=== PATIENT | female | born 1990 | race African-American/Black ===

== ENCOUNTER 2016-04-30 15:08 | Emergency (ER) ==
--- NOTE | 2016-04-30 16:20 | PROVIDER DOCUMENTATION ---
HPI-Abdominal Pain/GI Problem - General Source: patient - History of Present Illness-ABD Nature of Presenting Problems: patient is a 26 y/o F that presents with n/v. patient is about 6 weeks , denies fever/chills, abdominal pain, or vaginal bleeding/discharge Pain Radiation: reports: no radiation Quality of Pain: reports: none Severity in ED: reports: mild Onset/Duration: reports: gradual, 1 week ago Timing: reports: still present, intermittent Activities at Onset: reports: none Modifying Factors: improves with: nothing Associated Symptoms: reports: nausea, vomiting. denies: cough, diarrhea, dizziness, fatigue, fever/chills, genitourinary problems, rash Similar Symptoms Previously?: Yes Recently seen or treated by another doctor?: Yes <Veto Shirley - Last Filed: 04/30/16 16:59> <Rowan Hodges - Last Filed: 04/30/16 19:05> - General Chief Complaint: Nausea/Vomiting Stated Complaint: 6 WKS PREG/N/V FOR WKS Time Seen by Provider: 04/30/16 16:20 Allergies/Adverse Reactions: Patient Allergies Allergy/AdvReac Type Severity Reaction Status Date / Time iodine Allergy Severe ANAPHYLAXIS Verified 07/12/15 13:11 shellfish derived Allergy Severe ANAPHYLAXIS Verified 07/12/15 13:11 Home Medications: Home Medication List Medication Instructions Recorded Confirmed Last Taken Type Amoxicillin 500 mg PO BID #14 tablet 07/12/15 Unknown Rx Cetirizine [Zyrtec] 10 mg PO DAILY #20 tablet 07/12/15 Unknown Rx Prednisone 10 mg PO DIRECTED #9 tablet 07/12/15 Unknown Rx Ondansetron Odt [Zofran 4 mg Odt] 4 mg PO Q6H PRN PRN #15 tablet 04/30/16 Unknown Rx Promethazine [Phenergan] 25 mg PO Q6H PRN PRN #20 tablet 04/30/16 Unknown Rx Review of Systems - Adult - REVIEW OF SYSTEMS - ADULT Constitutional: denies: chills, fever Eyes: reports: no symptoms reported Ears, Nose, Mouth & Throat: denies: ear pain, sinus problem, throat pain, throat swelling Cardiovascular: denies: chest pain, palpitations, syncope Respiratory: denies: cough, shortness of breath, wheezing Gastrointestinal: reports: nausea, vomiting. denies: abdominal pain, diarrhea Genitourinary: denies: dysuria, frequency, hematuria, urgency Musculoskeletal: reports: no symptoms reported Integumentary: reports: no symptoms reported Neurological: reports: no symptoms reported Psychiatric: reports: no symptoms reported Endocrine: reports: no symptoms reported Hematologic/Lymphatic: reports: no symptoms reported Allergic/Immunologic: reports: no symptoms reported All Other Systems: Reviewed and Negative <Veto Shirley - Last Filed: 04/30/16 16:59> Past History - Adult - PAST MEDICAL HISTORY-ADULT Review of Records: reports: Old Records Reviewed, Nursing Assessment Review, Medications Reviewed, Social history reviewed & non-contributory. Major Childhood Illnesses: reports: denies history Cardiovascular: reports: HTN Neurological: reports: headaches/migraines, Seizures/Epilepsy - PRIOR SURGERIES/PROCEDURES Surgical/Procedure History: reports: - IMMUNIZATION STATUS Childhood Immunizations: See Nurse Assessment Flu Vaccine: See Nurse Assessment <Rowan Hodges - Last Filed: 04/30/16 19:05> Physical Exam-General - PHYSICAL EXAM-ADULT Initial Vital Signs Reviewed: Yes - CONSTITUTIONAL General Appearance: appears well, alert, no apparent distress - EYES Eyes: PERRL/EOMI, pink conjunctivae - HEAD, EARS, NOSE, MOUTH & THROAT HENMT: normocephalic/atraumatic, moist mucous membranes - NECK Neck: non-tender, full range of motion, supple. negative: lymphadenopathy - RESPIRATORY Respiratory: chest non-tender, lungs clear, normal breath sounds - CARDIOVASCULAR Cardiovascular: regular rate, rhythm - GASTROINTESTINAL (ABDOMEN) Abdominal Exam: normal bowel sounds, soft, tenderness (suprapubic and LLQ) - MUSCULOSKELETAL Back Exam: normal inspection, no CVA tenderness, no vertebral tenderness Extremity: normal gait, normal inspection - SKIN Integumentary: normal color, normal turgor, warm/dry. negative: rash - NEUROLOGIC Neurologic: grossly normal, no motor/sensory deficits - PSYCHIATRIC Psych/Mental Status: normal thought content, normal thought process <Rowan Hodges - Last Filed: 04/30/16 19:05> Progress - PLAN OF CARE/RESULTS Progress/Plan/Lab Results: Vital Signs Temp Pulse Pulse Pulse Pulse Resp BP 04/30/16 16:29 67 73 61 04/30/16 15:14 98.7 F 85 18 105/79 BP BP BP Pulse Ox 04/30/16 16:29 119/66 111/72 110/67 04/30/16 15:14 100 iodine Allergy (Severe, Verified 07/12/15 13:11) ANAPHYLAXIS shellfish derived Allergy (Severe, Verified 07/12/15 13:11) ANAPHYLAXIS Amoxicillin 500 mg PO BID #14 tablet 07/12/15 Cetirizine [Zyrtec] 10 mg PO DAILY #20 tablet 07/12/15 Prednisone 10 mg PO DIRECTED #9 tablet 07/12/15 Dietary Diet NPO Start WedApr 30 151 Laboratory 04/30/16 04/30/16 04/30/16 17:20 17:20 17:20 WBC 8.41 RBC 4.83 Hgb 13.3 Hct 38.9 MCV 80.5 L MCH 27.5 MCHC 34.2 RDW Std Deviation 13.3 Plt Count 245 MPV 12.1 H Immature Gran % (Auto) 0.1 Neut % (Auto) 72.4 Lymph % (Auto) 19.5 L [place] % (Auto) 7.4 Eos % (Auto) 0.4 Baso % (Auto) 0.2 Immature Gran # (Auto) 0.01 Neut # (Auto) 6.09 Lymph # (Auto) 1.64 [place] # (Auto) 0.62 H Eos # (Auto) 0.03 Baso # (Auto) 0.02 Sodium 132 L Potassium 3.8 Chloride 97 L Carbon Dioxide 23 L Anion Gap 12 BUN 10 Creatinine 0.5 Estimated GFR/1.73 m2 > 60 BUN/Creatinine Ratio 20 Glucose 80 Calculated Osmolality 263 Calcium 9.0 Total Bilirubin 1.00 AST 13 ALT 12 Alkaline Phosphatase 75 Total Protein 7.6 Albumin 4.3 Globulin 3.0 Albumin/Globulin Ratio 1.0 Amylase 128 Lipase 62 H Ser , Semi-Qnt 86663.0 Urine Source Urine Color Urine Clarity Urine pH Ur Specific [place] Urine Protein Urine Ketones Urine Blood Urine Nitrite Urine Bilirubin Urine Urobilinogen Urine Microscopic RBC Urine WBC Urine Microscopic WBC Ur Epithelial Cells Urine Crystals Urine Bacteria Urine Casts Urine Yeast Urine Glucose 04/30/16 17:07 WBC RBC Hgb Hct MCV MCH MCHC RDW Std Deviation Plt Count MPV Immature Gran % (Auto) Neut % (Auto) Lymph % (Auto) [place] % (Auto) Eos % (Auto) Baso % (Auto) Immature Gran # (Auto) Neut # (Auto) Lymph # (Auto) [place] # (Auto) Eos # (Auto) Baso # (Auto) Sodium Potassium Chloride Carbon Dioxide Anion Gap BUN Creatinine Estimated GFR/1.73 m2 BUN/Creatinine Ratio Glucose Calculated Osmolality Calcium Total Bilirubin AST ALT Alkaline Phosphatase Total Protein Albumin Globulin Albumin/Globulin Ratio Amylase Lipase Ser , Semi-Qnt Urine Source CLEAN CATCH Urine Color AVERY Urine Clarity SLIGHTLY CLOUDY A Urine pH 6.5 Ur Specific [place] 1.020 Urine Protein 1+(30 mg/dL) A Urine Ketones 2+(Moderate) A Urine Blood NEGATIVE Urine Nitrite NEGATIVE Urine Bilirubin NEGATIVE Urine Urobilinogen 2+(4 mg/dL) Urine Microscopic RBC Not Reportable Urine WBC TRACE A Urine Microscopic WBC <10 Ur Epithelial Cells >10 A Urine Crystals NONE SEEN Urine Bacteria 2+ Urine Casts NONE SEEN Urine Yeast NONE SEEN Urine Glucose NEGATIVE Orders Category Date Time Status ED: Orthostatic Vital Signs (E as directed Care 04/30/16 16:29 Active NPO Diet 04/30/16 15:17 Active AMYLASE [CHEM] Stat Lab 04/30/16 17:20 Completed CBC WITH ELECTRONIC DIFF [HEME] Stat Lab 04/30/16 17:20 Completed COMPREHENSIVE METABOLIC PANEL [CHEM] Stat Lab 04/30/16 17:20 Completed LIPASE [CHEM] Stat Lab 04/30/16 17:20 Completed QUANT TEST Stat Lab 04/30/16 17:[address] W/POSS RFLX CULT [URINALYSIS] Stat Lab 04/30/16 17:07 Completed URINE CULTURE [RM] Routine Lab 04/30/16 18:15 Ordered Ondansetron Odt [Zofran Odt] Med 04/30/16 16:30 Discontinued 4 mg PO NOW ONE Laboratory Tests 04/30/16 04/30/16 04/30/16 17:07 17:20 17:20 WBC 8.41 RBC 4.83 Hgb 13.3 Hct 38.9 MCV 80.5 L MCH 27.5 MCHC 34.2 RDW Std Deviation 13.3 Plt Count 245 MPV 12.1 H Immature Gran % (Auto) 0.1 Neut % (Auto) 72.4 Lymph % (Auto) 19.5 L [place] % (Auto) 7.4 Eos % (Auto) 0.4 Baso % (Auto) 0.2 Immature Gran # (Auto) 0.01 Neut # (Auto) 6.09 Lymph # (Auto) 1.64 [place] # (Auto) 0.62 H Eos # (Auto) 0.03 Baso # (Auto) 0.02 Sodium 132 L Potassium 3.8 Chloride 97 L Carbon Dioxide 23 L Anion Gap 12 BUN 10 Creatinine 0.5 Estimated GFR/1.73 m2 > 60 BUN/Creatinine Ratio 20 Glucose 80 Calculated Osmolality 263 Calcium 9.0 Total Bilirubin 1.00 AST 13 ALT 12 Alkaline Phosphatase 75 Total Protein 7.6 Albumin 4.3 Globulin 3.0 Albumin/Globulin Ratio 1.0 Amylase 128 Lipase 62 H Ser , Semi-Qnt Urine Source CLEAN CATCH Urine Color AVERY Urine Clarity SLIGHTLY CLOUDY A Urine pH 6.5 Ur Specific [place] 1.020 Urine Protein 1+(30 mg/dL) A Urine Ketones 2+(Moderate) A Urine Blood NEGATIVE Urine Nitrite NEGATIVE Urine Bilirubin NEGATIVE Urine Urobilinogen 2+(4 mg/dL) Urine Microscopic RBC Not Reportable Urine WBC TRACE A Urine Microscopic WBC <10 Ur Epithelial Cells >10 A Urine Crystals NONE SEEN Urine Bacteria 2+ Urine Casts NONE SEEN Urine Yeast NONE SEEN Urine Glucose NEGATIVE 04/30/16 17:20 WBC RBC Hgb Hct MCV MCH MCHC RDW Std Deviation Plt Count MPV Immature Gran % (Auto) Neut % (Auto) Lymph % (Auto) [place] % (Auto) Eos % (Auto) Baso % (Auto) Immature Gran # (Auto) Neut # (Auto) Lymph # (Auto) [place] # (Auto) Eos # (Auto) Baso # (Auto) Sodium Potassium Chloride Carbon Dioxide Anion Gap BUN Creatinine Estimated GFR/1.73 m2 BUN/Creatinine Ratio Glucose Calculated Osmolality Calcium Total Bilirubin AST ALT Alkaline Phosphatase Total Protein Albumin Globulin Albumin/Globulin Ratio Amylase Lipase Ser , Semi-Qnt 00737.0 Urine Source Urine Color Urine Clarity Urine pH Ur Specific [place] Urine Protein Urine Ketones Urine Blood Urine Nitrite Urine Bilirubin Urine Urobilinogen Urine Microscopic RBC Urine WBC Urine Microscopic WBC Ur Epithelial Cells Urine Crystals Urine Bacteria Urine Casts Urine Yeast Urine Glucose <Rowan Hodges - Last Filed: 04/30/16 19:05> Departure <Veto Shirley - Last Filed: 04/30/16 16:59> - Departure Time of Disposition Order: 19:03 Certified Medical Emergency: Emergent <Rowan Hodges - Last Filed: 04/30/16 19:05> - Departure DIAGNOSIS: Hyperemesis gravidarum Disposition: HOME 01 Condition: Good Additional Instructions: ED Follow Up Instructions: You have been treated by a care provider in the Emergency Department. These instructions are being provided to you so you can have an understanding of how to care for yourself upon discharge. Upon discharge from the Emergency Department, you are responsible for making arrangements for follow-up care by a physician of your choice. Take all prescribed medications as directed. Return to the Emergency Department immediately for any new or worsening symptoms. You may call the Physician Referral phone number at [phone] to obtain a list of Physicians who are taking new patients. Prescriptions: Promethazine [Phenergan] 25 mg PO Q6H PRN PRN #20 tablet PRN Reason: Nausea Ondansetron Odt [Zofran 4 mg Odt] 4 mg PO Q6H PRN PRN #15 tablet PRN Reason: Nausea Referrals: None,PCP [Primary Care Provider] - Rylee Hernández MD [STAFF PHYSICIAN] - Attestation - Scribe Verification/Attestation Scribe:: Veto Shirley Acting as Scribe for:: Rowan Hodges Scribe documention review:: This chart was documented by a scribe and accurately reflects the service the provider performed and the decisions made by the provider. - Physician/ SUSHIL Attestation Patient care was provided by Advanced Practice Provider:: Yes Advanced Practice Provider:: Rowan Hodges Advanced Practice Provider documentation review:: The Mid-level provider documentation, treatment plan and medical decision making was reviewed by the physician who agrees with all treatment and medical decision making by the MLP. <Veto Shirley - Last Filed: 04/30/16 16:59> - Physician/ SUSHIL Attestation Patient care was provided by Advanced Practice Provider:: Yes Advanced Practice Provider:: Rowan Hodges Advanced Practice Provider documentation review:: The Mid-level provider documentation, treatment plan and medical decision making was reviewed by the physician who agrees with all treatment and medical decision making by the MLP. <Rowan Hodges - Last Filed: 04/30/16 19:05> Physician Attestation - Physician Attestation I, the provider, attest to the following statement:: Rowan Hodges Physician documentation Attestation:: This documentation recorded by the scribe accurately reflects the service I personally performed and the decisions made by me. <Veto Shirley - Last Filed: 04/30/16 16:59> - Physician Attestation I, the provider, attest to the following statement:: Rowan Hodges Physician documentation Attestation:: This documentation recorded by the scribe accurately reflects the service I personally performed and the decisions made by me. <Rowan Hodges - Last Filed: 04/30/16 19:05>
[2016-04-30] MEDS ORDERED: ZOFRAN ODT PO ONE (16:30)
[2016-04-30 17:14] LABS: URINE SOURCE CLEAN CATCH
[2016-04-30 17:24] LABS: CLARITY SLIGHTLY CLOUDY (CLEAR); COLOR AMBER
[2016-04-30 17:28] LABS: MANUAL DIFF NEEDED? NO
[2016-04-30 17:40] LABS: BASO% 0.2 % (0.0-0.8); EOS# 0.03 X1000 (0.0-0.7); EOS% 0.4 % (0.0-10.0); HEMATOCRIT 38.9 % (37.0-47.0); HEMOGLOBIN 13.3 g/dL (12.0-16.0); IMM GRAN# 0.01 X1000 (0.0-0.04); IMM GRAN% 0.1 % (0.0-0.5); LYMPH# 1.64 X1000 (1.2-3.4); LYMPH% 19.5 % (20.5-51.1); MCH 27.5 PG (27-31); MCHC 34.2 g/dL (33-37); MCV 80.5 FL (81-99); MONO# 0.62 X1000 (0.11-0.59); MONO% 7.4 % (1.7-9.3); MPV 12.1 FL (7.4-10.4); NEUT% 72.4 % (42.2-75.2); PLT 245 X1000 (130-400); RBC 4.83 XMIL (4.2-5.4)
[2016-04-30 18:00] LABS: AGAP 12; ALBUMIN 4.3 g/dL (3.5-5.0); ALKALINE PHOSPHATASE 75 U/L (32-104); AMYLASE 128 U/L (20-200); BUN 10 mg/dL (8-22); CHLORIDE 97 mmol/L (98-107); COSMO 263; GOT 13 U/L (10-30); GPT 12 U/L (10-36); LIPASE 62 U/L (13-60); POTASSIUM 3.8 mmol/L (3.5-5.1); SODIUM 132 mmol/L (136-145); TCO2 23 mmol/L (25-35); TOTAL PROTEIN 7.6 g/dL (6.3-8.3)
[2016-04-30 18:14] LABS: URINE CAST NONE SEEN /LPF; URINE CRYSTAL NONE SEEN /HPF; URINE EPITHELIAL CELLS >10 /HPF (<10); URINE WBC <10 /HPF (<10)
[2016-04-30 18:15] LABS: BILIRUBIN URINE NEGATIVE (NEGATIVE); BLOOD URINE NEGATIVE (NEGATIVE); GLUCOSE URINE NEGATIVE (NEGATIVE); LEUKOCYTES URINE TRACE (NEGATIVE); NITRITE URINE NEGATIVE (NEGATIVE); PH URINE 6.5; PROTEIN URINE 1+(30 mg/dL) mg/dL (NEGATIVE); URINE CULTURE PL NEEDED? YES; UROBILINOGEN URINE 2+(4 mg/dL)
[2016-04-30 19:29] VITALS: BP 112/79
== END 2016-04-30 19:29 | disposition home or self-care (01) ==
LOC: P.ED 15:08
DX: O21.0 Mild hyperemesis gravidarum (principal); Z3A.01 Less than 8 weeks gestation of pregnancy; O26.891 Other specified pregnancy related conditions, first trimester; R10.30 Lower abdominal pain, unspecified; R10.32 Left lower quadrant pain; Z79.52 Long term (current) use of systemic steroids
CPT/HCPCS: 80053; 81001; 82150; 83690; 84702; 85025; 87088; 99283